=== PATIENT | female | born 1980 | race African-American/Black ===

== ENCOUNTER 2019-10-16 12:19 | Observation (INO) ==
[2019-10-16] MEDS ORDERED: METOCLOPRAMIDE 10 MG/2 ML VIAL IV STA (14:10)
[2019-10-16] MEDS ORDERED: SODIUM CHLORIDE 0.9% 1,000 ML IV STA (14:10)
[2019-10-16 14:43] LABS: Basophils # 0.1 10*3/uL (0.0-0.2); Basophils % 1.3 % (0.0-0.8); Eosinophils % 0.8 % (0.00-10.9); Hematocrit 20.8 VOL% (35.7-47.0); Immature Granulocytes % 0.4 %; Immature Granulocytes Absolute 0.02 #; Lymphocytes # 2.4 10*3/uL (1.4-4.0); Lymphocytes % 44.3 % (21.3-54.2); Mean Corpuscular Volume 59.3 FL (87-102); Monocytes % 9.6 % (1.7-12.7); NRBC # 0.04 10*3/uL; Neutrophils % 43.6 % (38.7-73.9); Platelet Count 444 T/CUMM (130-400); Red Blood Count 3.51 MC/CUMM (3.8-5.5); Red Cell Distribution Width 33.3 % (9.3-17.3); White Blood Count 5.3 T/CUMM (4-12)
[2019-10-16] MEDS ORDERED: SODIUM CHLORIDE 0.9% 1,000 ML IV PRN ×2 (14:55→19:24)
[2019-10-16 15:02] LABS: Apearance,Urine CLOUDY (Clear); Bacteria,Urine Occasional /HPF (Few); Bilirubin,Urine Negative (Negative); Blood, Urine Negative (Negative); Glucose,Urine (UA) Negative (Negative); Ketones,Urine Negative (Negative); Mucus,Urine Occasional /LPF (Occasional); Nitrite,Urine Negative (Negative); Protein,Urine Negative; RBC,Urine 2 /HPF (0-4); Squamous Epithelial Cell,Urine Few /HPF (0-10); Urine Color Yellow (Yellow); Urine Specific Gravity 1.019 (1.001-1.035); Urine Urobilinogen < 2.0 EU/DL (0.2-1.0); WBC,Urine 8 /HPF (0-6)
[2019-10-16 15:04] LABS: Calcium 8.6 MG/DL (8.5-10.1); Osmolality,Calculated 276.4 MOS/KG (273-304)
[2019-10-16] MEDS ORDERED: ONDANSETRON 4 MG/2 ML VIAL IV PRN (17:25)
[2019-10-16] MEDS ORDERED: MAGNESIUM HYDROXIDE SUSP 30 ML UDCUP PO PRN (17:25)
[2019-10-16] MEDS ORDERED: LACTATED RINGERS 1,000 ML IV SCH (17:25)
[2019-10-16] MEDS ORDERED: ACETAMINOPHEN 325 MG TABLET PO PRN (17:25)
[2019-10-16] MEDS ORDERED: BISACODYL 10 MG SUPP RECTAL PRN (17:25)
[2019-10-16] MEDS: IBUPROFEN 800 MG TABLET PO PRN (18:41)
[2019-10-16 19:03] LABS: Eosinophils 1 % (0-10); Hypochromasia 3+; Lymphocytes 44 % (20-55); Nucleated Red Blood Cells 1 (0-5); Platelet Estimate Increased; Segmented Neutrophils 43 % (50-85); Total Cells Counted 100
[2019-10-16 19:04] LABS: Anisocytosis 2+; Poikilocytosis 2+
[2019-10-16 19:05] LABS: Microcytosis 2+; Tear Drop Cells 1+
[2019-10-16 19:06] LABS: Reactive Lymphocytes 1+
[2019-10-16] MEDS: DOCUSATE SODIUM 100 MG CAPSULE PO SCH (22:00)
[2019-10-16] MEDS: FERROUS SULFATE 325 MG TABLET PO SCH (22:00)
[2019-10-17] MEDS ORDERED: ACETAMINOPHEN 500 MG TABLET ONE (01:47)
[2019-10-17] MEDS: ACETAMINOPHEN 500 MG TABLET PO PRN ×2 (01:50→10:01)
[2019-10-17 05:18] LABS: Basophils # 0.1 10*3/uL (0.0-0.2); Basophils % 1.1 % (0.0-0.8); Eosinophils # 0.1 10*3/uL (0.0-0.87); Eosinophils % 0.9 % (0.00-10.9); Immature Granulocytes % 0.3 %; Immature Granulocytes Absolute 0.02 #; Lymphocytes # 2.9 10*3/uL (1.4-4.0); Lymphocytes % 45.7 % (21.3-54.2); Mean Corpuscular HGB Conc 28.5 GM/DL (32-36); Mean Corpuscular Volume 69.3 FL (87-102); Monocytes % 8.5 % (1.7-12.7); NRBC # 0.04 10*3/uL; Neutrophils % 43.5 % (38.7-73.9); Platelet Count 269 T/CUMM (130-400); Red Blood Count 4.36 MC/CUMM (3.8-5.5); White Blood Count 6.3 T/CUMM (4-12)
[2019-10-17 06:09] LABS: Hemoglobin 8.6 GM/DL (12.0-16.0)
[2019-10-17] MEDS: IBUPROFEN 800 MG TABLET PO PRN (06:10)
[2019-10-17 06:32] LABS: Hypochromasia 2+; Microcytosis 2+
[2019-10-17 06:33] LABS: Platelet Estimate Normal; Target Cells Slight; Tear Drop Cells Slight
[2019-10-17 08:15] VITALS: BP 129/80
[2019-10-17] MEDS: FERROUS SULFATE 325 MG TABLET PO SCH (10:01)
[2019-10-17] MEDS: DOCUSATE SODIUM 100 MG CAPSULE PO SCH (10:01)
== END 2019-10-17 10:35 | disposition home or self-care (01) ==
LOC: N.ED 12:19 → N.EDINP 12:19 → N.OB 17:04
PROVIDERS: ADMIT Obstetrics & Gynecology; ATTEND Obstetrics & Gynecology

== ENCOUNTER 2021-08-20 19:00 | Observation (INO) ==
[2021-08-21] MEDS ORDERED: diphenhydrAMINE 50 MG/1 ML VIAL IV STA (00:41)
[2021-08-21] MEDS ORDERED: PROMETHAZINE 25 MG/1 ML VIAL IM STA (00:41)
[2021-08-21] MEDS ORDERED: chlorproMAZINE 25 MG/1 ML AMP IM STA (00:41)
[2021-08-21] MEDS ORDERED: SODIUM CHLORIDE 0.9% 500 ML IV ONE (00:41)
[2021-08-21] MEDS ORDERED: chlorproMAZINE INJ 25 MG in SODIUM CHLORIDE 0.9% 100 ML IV STA (00:44)
[2021-08-21 01:39] LABS: Blood Urea Nitrogen 7 MG/DL (7-18); Calcium 9.1 MG/DL (8.5-10.1); Carbon Dioxide 25 MMOL/L (21-32); Chloride 108 MMOL/L (98-107); Glucose 103 MG/DL (74-106); Osmolality,Calculated 272.7 MOS/KG (273-304); Potassium 3.3 MMOL/L (3.5-5.1); Sodium 138 MMOL/L (136-145)
[2021-08-21 01:48] LABS: Basophils # 0.1 10*3/uL (0.0-0.2); Basophils % 1.3 % (0.0-0.8); Eosinophils # 0.1 10*3/uL (0.0-0.87); Eosinophils % 0.9 % (0.00-10.9); Immature Granulocytes % 0.7 %; Immature Granulocytes Absolute 0.05 #; Lymphocytes % 40.3 % (21.3-54.2); Mean Corpuscular HGB Conc 25.7 GM/DL (32-36); Mean Corpuscular Volume 60.8 FL (87-102); Monocytes # 0.6 10*3/uL (0.11-0.8); Monocytes % 7.6 % (1.7-12.7); NRBC # 0.09 10*3/uL; Neutrophils % 49.2 % (38.7-73.9); Platelet Count 622 T/CUMM (130-400); Red Blood Count 3.39 MC/CUMM (3.8-5.5); Red Cell Distribution Width 35.8 % (9.3-17.3); White Blood Count 7.5 T/CUMM (4-12)
[2021-08-21 01:58] LABS: Hemoglobin 5.3 GM/DL (12.0-16.0)
[2021-08-21] MEDS ORDERED: POTASSIUM CHLORIDE 20 MEQ TABLET PO STA (01:58)
[2021-08-21] MEDS ORDERED: SODIUM CHLORIDE 0.9% 1,000 ML IV PRN (02:07)
[2021-08-21] MEDS ORDERED: FUROSEMIDE 20 MG/2 ML VIAL IV ONE (02:09)
[2021-08-21 02:18] LABS: Eosinophils 3 % (0-10); Hypochromia 2+; Lymphocytes 27 % (20-55); Microcytosis 2+; Platelet Estimate Increased; Total Cells Counted 100
[2021-08-21 02:19] LABS: Anisocytosis 1+; Polychromasia 1+; Stomatocytes 1+
[2021-08-21] MEDS ORDERED: FUROSEMIDE 40 MG/4 ML VIAL IV ONE (02:30)
[2021-08-21] MEDS ORDERED: ACETAMINOPHEN 325 MG TABLET PO PRN (03:12)
[2021-08-21] MEDS ORDERED: HYDROmorphone 1 MG/1 ML SYRINGE IV PRN (03:12)
[2021-08-21] MEDS ORDERED: PROMETHAZINE 25 MG/1 ML VIAL IV PRN (03:12)
[2021-08-21] MEDS ORDERED: GLUCAGON 1 MG VIAL IM PRN (03:12)
[2021-08-21] MEDS ORDERED: ONDANSETRON 4 MG/2 ML VIAL IV PRN (03:12)
[2021-08-21 03:24] LABS: Hematocrit 20.7 VOL% (35.7-47.0)
[2021-08-21 03:24] LABS: Hematocrit 20.6 VOL% (35.7-47.0); Sedimentation Rate-Westergren 37 MM/HR (0-20)
[2021-08-21 03:26] LABS: Hemoglobin 5.1 GM/DL (12.0-16.0)
[2021-08-21] MEDS ORDERED: PROMETHAZINE INJ 25 MG in SODIUM CHLORIDE 0.9% 50 ML IV PRN (03:28)
[2021-08-21] MEDS ORDERED: DEXTROSE 10% 250 ML BAG IV PRN (03:29)
[2021-08-21] MEDS ORDERED: LACTATED RINGERS 1,000 ML IV SCH (03:30)
[2021-08-21] MEDS ORDERED: BUTALBITAL/ACETAMIN/CAFFEINE 50-325-40 MG TABLET PO PRN (03:56)
[2021-08-21 04:14] LABS: % Iron Saturation 3.5 % (18-50); Ferritin 1.6 ng/mL (8-252)
[2021-08-21 12:30] LABS: Basophils # 0.1 10*3/uL (0.0-0.2); Basophils % 1.5 % (0.0-0.8); Eosinophils # 0.1 10*3/uL (0.0-0.87); Eosinophils % 0.7 % (0.00-10.9); Hemoglobin 8.2 GM/DL (12.0-16.0); Immature Granulocytes % 0.8 %; Immature Granulocytes Absolute 0.06 #; Lymphocytes # 1.9 10*3/uL (1.4-4.0); Lymphocytes % 26.1 % (21.3-54.2); Mean Corpuscular HGB Conc 28.3 GM/DL (32-36); Mean Corpuscular Volume 67.1 FL (87-102); Monocytes # 0.6 10*3/uL (0.11-0.8); Monocytes % 8.8 % (1.7-12.7); NRBC # 0.08 10*3/uL; Neutrophils % 62.1 % (38.7-73.9); Platelet Count 550 T/CUMM (130-400); Red Blood Count 4.32 MC/CUMM (3.8-5.5); White Blood Count 7.1 T/CUMM (4-12)
[2021-08-21 12:40] LABS: Lymphocytes 23 % (20-55); Platelet Estimate Increased; Total Cells Counted 100
[2021-08-21 12:41] LABS: Anisocytosis 2+; Hypochromia 2+; Microcytosis 2+
[2021-08-21 12:42] LABS: Macrocytosis 2+
[2021-08-21] MEDS ORDERED: FERRIC GLUCONATE COMPLEX 125 MG in SODIUM CHLORIDE 0.9% 100 ML IV SCH (13:00)
[2021-08-21 13:10] VITALS: BP 119/71
== END 2021-08-21 15:47 | disposition home or self-care (01) ==
LOC: N.ED 19:00 → N.5E 19:00 → SUATTDRO 08-21 03:12 → N.5E 08-21 06:51
PROVIDERS: ADMIT Internal Medicine; ATTEND Internal Medicine Geriatric Medicine